=== PATIENT | female | born 1975 | race Caucasian/White ===

== ENCOUNTER → 2022-09-20 10:40 | Outpatient (CLI) | payer OTHER, SELFPAY ==
--- NOTE | 2022-09-20 10:43 | DI.RAD.S_ITS ---
PROCEDURE: XR ANKLE RT MIN 3V INDICATIONS: lateral malleolar tenderness, snap while running TECHNIQUE: 3 views of the ankle were acquired. COMPARISON: None. FINDINGS: Bones: No fractures or dislocations. Ankle mortise is normally aligned. No suspicious bony lesions. Soft tissues: Moderate-sized tibiotalar joint effusion. Achilles tendon appears normal. IMPRESSION: 1. No visible fractures. 2. Moderate-sized tibiotalar joint effusion may indicate sprain. Dictated by: Delia Anthony M.D. on 09/20/2022 at 10:45 Approved by: Delia Anthony M.D. on 09/20/2022 at 10:46
--- NOTE | 2022-09-20 10:43 | DI.RAD.S_ITS ---
PROCEDURE: XR FOOT RT MIN 3V INDICATIONS: lateral malleolar tenderness, snap while running TECHNIQUE: 3 views of the foot were acquired. COMPARISON: None. FINDINGS: Bones: No fractures or dislocations. No suspicious bony lesions. Soft tissues: Moderate-sized tibiotalar joint effusion. Achilles tendon appears normal. IMPRESSION: 1. No visible fractures. 2. Moderate-sized tibiotalar joint effusion. Dictated by: Delia Anthony M.D. on 09/20/2022 at 10:46 Approved by: Delia Anthony M.D. on 09/20/2022 at 10:47
== END ==
PROVIDERS: PCP Family Medicine; Referring Provider Student in an Organized Health Care Education/Training Program; Visit Provider Student in an Organized Health Care Education/Training Program
DX: M25.471 Effusion, right ankle (principal)
CPT/HCPCS: 73610; 73630

== ENCOUNTER → 2024-04-26 07:52 | Outpatient (CLI) | payer OTHER, MEDICAID, SELFPAY ==
--- NOTE | 2024-04-26 07:54 | DI.US.S_ITS ---
PROCEDURE: US ABDOMEN COMPLETE INDICATIONS: abd cramping, endometriosis TECHNIQUE: Real-time scanning was performed of the abdominal and retroperitoneal organs, with image documentation. COMPARISON: None. FINDINGS: Liver: Liver is normal in size and homogeneous in echotexture. Gallbladder: There is no gallstone. No gallbladder wall thickening or pericholecystic fluid. No sonographic Taylor's sign. Biliary ducts: Intrahepatic bile ducts are non-dilated. Extrahepatic bile duct caliber measures 3.1 mm. Normal is 6-7 mm or less in diameter, or 10 mm or less post-cholecystectomy. Pancreas: Visualized portions of the pancreas are sonographically normal. Spleen: Spleen is normal in size and homogeneous in echotexture. Kidneys: Kidneys are normal in size and echotexture. Right kidney measures 11.4 cm long; left kidney measures 9.8 cm long. No hydronephrosis or nephrolithiasis. No solid masses. Aorta: Visualized aorta is normal in caliber at less than 3 cm. Iliacs: Proximal common iliac arteries are normal in caliber at less than 2.5 cm. IVC: Intrahepatic inferior vena cava is patent. Miscellaneous: No free abdominal fluid. IMPRESSION: Unremarkable ultrasound examination of abdomen. Dictated by: Skinny Watts M.D. on 04/26/2024 at 8:52 Approved by: Skinny Watts M.D. on 04/26/2024 at 8:52
--- NOTE | 2024-04-26 07:54 | DI.US.S_ITS ---
PROCEDURE: US PELVIC COMPLETE INDICATIONS: abd cramping, pelvic pain, endometriosis TECHNIQUE: Real-time scanning was performed of the pelvic organs, with image documentation. Additional endovaginal scanning was necessary due to incomplete visualization of the adnexal and endometrial structures by transabdominal scanning. COMPARISON: None. FINDINGS: Uterus: Uterus is anteverted and normal in size at 9.7 x 5.0 x 6.9 cm. The myometrium is homogeneous. The endometrium measures 2.7 mm combined thickness. Intrauterine device is noted in its normal central endometrial location. No endometrial mass. Trace amount of fluid is seen in endocervical canal. Ovaries: The right ovary measures 2.3 x 4.6 x 1.7 cm, with a calculated ovarian volume of 9.4 cc. The left ovary measures 3.8 x 2.5 x 2.6 cm, with a calculated ovarian volume of 12.9 cc. 2 simple appearing cysts are noted in right ovary measures up to 2.1 x 1.3 x 1.9 cm in size. 2.4 x 2.8 x 1.8 cm hemorrhagic cyst is seen in left ovary. No solid appearing ovarian lesion. Less than 12 follicles can be seen in each ovary. No adnexal masses are seen. Other: No pathologic free abdominal or pelvic fluid. IMPRESSION: 1. No endometrial mass or fluid. Trace amount of fluid within endocervical canal. No discrete uterine fibroids. 2. Simple cysts in right ovary as above. Possible hemorrhagic cyst in left ovary measures 2.4 x 2.8 x 1.8 cm in size. Short term sonographic 4-6 weeks follow-up is recommended. We strive to produce accurate, complete, and clear reports of imaging services. To assist us in improving patient care, this report was composed using standard report templates and voice recognition software. Therefore, it may contain abnormal punctuation, insertions and/or omissions. Occasional wrong-word or sound-alike substitutions may occur. Though we review the report and make efforts to correct it, we do recommend that the report be read carefully in proper context to recognize any text inaccuracies. Dictated by: Skinny Watts M.D. on 04/26/2024 at 8:52 Approved by: Skinny Watts M.D. on 04/26/2024 at 8:55
== END ==
PROVIDERS: PCP Family Medicine; Referring Provider Family Medicine; Visit Provider Family Medicine
DX: N80.9 Endometriosis, unspecified (principal); N83.291 Other ovarian cyst, right side; N83.202 Unspecified ovarian cyst, left side; R10.2 Pelvic and perineal pain; R10.9 Unspecified abdominal pain; F39 Unspecified mood [affective] disorder; G62.9 Polyneuropathy, unspecified; R45.86 Emotional lability; R63.4 Abnormal weight loss; Z97.5 Presence of (intrauterine) contraceptive device
CPT/HCPCS: 36415; 76700; 76830; 76856; 80053; 82397; 82533; 82670; 83001; 83498; 84403; 84425; 84439; 84443; 84480; 84482; 85025

== ENCOUNTER → 2024-04-26 08:39 | Outpatient (CLI) | payer OTHER, MEDICAID, SELFPAY ==
[2024-04-26 09:17] LABS: Add Manual Diff / Slide Review NO; Basophils Absolute Auto 0 /uL (0-100); Basophils Percent Auto 0.8 % (0-2); Eosinophils Absolute Auto 0 /uL (0-450); Hematocrit 38.7 % (36-46); Hemoglobin 13.3 g/dL (12.0-16.0); Lymphocytes Absolute Auto 1400 /uL (1100-4500); Lymphocytes Percent Auto 28.5 % (25-40); Mean Corpuscular HGB Conc 34.4 % (30-36); Mean Corpuscular Hemoglobin 30.8 PG (26-34); Mean Corpuscular Volume 89.7 fL (80-100); Monocytes Absolute Auto 300 /uL (0-900); Monocytes Percent Auto 5.6 % (3-14); Neutrophils Absolute Auto 3000 /uL (1500-7000); Neutrophils Percent Auto 64.1 % (50-75); Platelet Count 247 X10^3/uL (150-400); Red Blood Cell Count 4.31 X10^6/uL (4.0-5.2); Red Cell Distribution Width 12.9 % (11.6-14.8); White Blood Cell Count 4.7 X10^3/uL (4.5-11.0)
[2024-04-26 09:47] LABS: Alanine Aminotransferase 23 IU/L (<35); Albumin 4.2 g/dL (3.5-5.0); Albumin Globulin Ratio 1.9 (1.0-2.8); Alkaline Phosphatase 55 U/L (38-126); Aspartate Aminotransferase 31 IU/L (14-36); BUN Creatinine Ratio 15.9 (6-22); Bilirubin Total 0.6 mg/dL (0.2-1.3); Blood Urea Nitrogen 13 mg/dL (7-17); Calcium 9.1 mg/dL (8.4-10.2); Carbon Dioxide 26 mmol/L (22-32); Chloride 105 mmol/L (98-107); Estimated Glomerular Filt Rate > 60 mL/min (>60); Globulin 2.2 g/dL (1.7-4.1); Glucose 85 mg/dL (70-100); HEMOLYSIS < 15 (0-50); Potassium 3.9 mmol/L (3.4-5.1); Sodium 136 mmol/L (137-145); Total Protein 6.4 g/dL (6.3-8.2)
[2024-04-26 10:02] LABS: Follicle Stimulating Hormone 8.82 mIU/mL; Free T4, Direct Thyroxine 0.79 ng/dL (0.78-2.19)
[2024-04-26 10:16] LABS: Thyroid Stimulating Hormone 3.98 uIU/mL (0.47-4.68)
[2024-04-26 10:17] LABS: Cortisol Random 9.92 ug/dL
[2024-04-26 10:18] LABS: Estradiol, Total 140.7 pg/mL
[2024-04-26 10:19] LABS: Testosterone 36.5 ng/dL (5.71-77.0)
[2024-04-27 07:36] LABS: Triiodothyronine T3 Total 96 ng/dL (71-180)
[2024-05-01 08:36] LABS: Vitamin B1 126.5 nmol/L (66.5-200.0)
[2024-05-01 20:09] LABS: Anti Mullerian Hormone 0.055 ng/mL (.)
[2024-05-01 23:07] LABS: Triiodothyronine T3 Reverse 12.3 ng/dL (.)
== END ==
PROVIDERS: PCP Family Medicine; Referring Provider Family Medicine; Visit Provider Family Medicine
DX: R10.9 Unspecified abdominal pain (principal); N80.9 Endometriosis, unspecified; G62.9 Polyneuropathy, unspecified; R45.86 Emotional lability; R10.2 Pelvic and perineal pain; R63.4 Abnormal weight loss; F39 Unspecified mood [affective] disorder
CPT/HCPCS: 36415; 80053; 82397; 82533; 82670; 83001; 83498; 84403; 84425; 84439; 84443; 84480; 84482; 85025

== ENCOUNTER 2024-10-17 09:18 | Day surgery (SDC) | payer OTHER, SELFPAY ==
--- NOTE | 2024-10-17 | PATH_ITS ---
[facility] Accession Number: [id number] No. of containers..01 Tissue . 01 Material submitted: . rectum - RECTAL POLYP . 01 Diagnosis: RECTAL POLYP: Colonic mucosa with focal mucosal hyperplasia. Negative for dysplasia or malignancy. MRV 10/24/2024 1311 Local . 01 Electronically signed: . Alvaro Reese MD, PhD, Pathologist NPI- [id number] . 01 Gross description: . Received in formalin with two identifiers and rectal polyp, are two butler soft tissue fragments 0.3 cm each in greatest dimension. Submitted in cassette A1. ([id number]) /ARUN 10/21/2024 0549 Local . 01 Pathologist provided ICD-10: K62.1 . 01 CPT . 789774 Specimen Comment: A courtesy copy of this report has been sent to [phone] Performed at: [address] [facility] [address], [place], [place] [id number] MD Darwin Belcher MD Phone: [phone]
[2024-10-17 11:14] VITALS: BP 102/60; PULSE 67; RESP 16; TEMP 36.7; O2SAT 100
[2024-10-17] MEDS: LACTATED RINGERS 1,000 ML 42 ML IV (11:26)
--- NOTE | 2024-10-17 11:31 | P.HP_ITS ---
History of Present Illness History of Present Illness Date Patient Seen: 10/17/24 Chief complaint: Colonoscopy Narrative: First complete colonoscopy for screening [facility] Medical History (Updated 08/02/24 @ 17:44 by Aneta Yepez MD) Family history of breast cancer H/O failed conscious sedation Encounter for IUD removal Wears glasses Anxiety Peripheral neuropathy (~2022) ADHD (~1989) Carpal tunnel syndrome (~2019) Chicken pox (~1981) Tinnitus (~2013) Hypothyroidism (~2007) Endometriosis (~2005) Weight loss Surgical History (Updated 07/03/24 @ 19:04 by Aneta Yepez MD) S/P bilateral mastectomy Social History Smoking Status: Never smoker alcohol intake: never additional social history: lives with and 4 children: .03.08.16 safe physical work: [employer] depression and anxiety in the past: in [place] -- daughter had psych problem -- SSRI started sertraline -- no libido. now on wellbutrin dad with anxiety. FHX: mom -- breast cancer - 39 yo. sister: anxiety and ADHD mastectomy: bilateral. genetic testing is negative PMHX: endometriosis stomach problems 10 yrs ago -- tinnitus due to abx from bacteremia. cannot eat sugar. Mirena IUD since 2018 + family history of bipolar in extended family denies history of abuse 03/2024 Meds Home Medications and Allergies Home Medications ?Medication ?Instructions ?Recorded ?Confirmed ?Type progesterone micronized 100 mg 100 mg PO BEDTIME take every day 04/10/24 08/02/24 Rx capsule while on estrogen #90 caps bupropion HCl 300 mg 24 hr tablet, 300 mg PO QAM #90 t abs 08/02/24 10/17/24 Rx extended release estradiol 0.0375 mg/24 hr 1 patch transdermal 2XW must take 09/26/24 Rx semiweekly transdermal patch progesterone every night. #24 ea Allergies Allergy/AdvReac Type Severity Reaction Status Date / Time No Known Drug Allergies Allergy Verified 10/17/24 11:11 Exam Vital Signs (past 8 hours): - 10/17/24 11:14 Temperature 98.1 F Pulse Rate 67 Respiratory Rate 16 Blood Pressure 102/60 Pulse Oximetry 100 Oxygen Delivery Method Room Air Oxygen Delivery Method Room Air Narrative Exam Narrative: Oropharynx free of lesions Chest clear to auscultation percussion Assessment & Plan Assessment & Plan narrative: 1st complete colonoscopy for screening. Risks, benefits, alternatives have been explained. Time-Based Coding :: [TOTAL MINUTES] spent with patient and on the chart (including review of chart, obtaining history, exam, reviewing outside data, placing orders, documenting exam and treatment plan, and counseling patient) on [DATE]. PROFEE Direct Marketing Specialist Document charge(s): No
--- NOTE | 2024-10-17 11:34 | PM.OP.COLON ---
Operative Date/Time/Diagnoses Date of procedure: 10/17/24 Time of procedure: 12:30 Pre-op diagnosis: See indication and findings Post-op diagnosis: same Procedure & Clinicians Study performed: Colonoscopy Same procedure(s) as scheduled: Yes Indications: Screening Surgeon: Naila Barton Procedure Notes Procedure in detail: After informed consent was obtained the patient was placed in left lateral decubitus position. The video colonoscope was placed in the rectum slowly advanced cecum. Preparation was good. On slow withdrawal mucosa was carefully examined. The scope was removed. The patient tolerated procedure well. Blood loss none Complications none Sedation mac Findings 1. Scattered sigmoid diverticulosis 2. 4 mm polyp in the high rectum Jumbo biopsied and removed completely 3. Otherwise negative colonoscopy to cecum Will be in touch regarding biopsies which will help determine whether she has follow-up in 5-7 years or in 10 years.
[2024-10-17 12:32] VITALS: BP 96/50; PULSE 73; RESP 14; TEMP 36.6; O2SAT 100
[2024-10-17 12:37] VITALS: BP 102/66; PULSE 73; RESP 16; O2SAT 100
[2024-10-17 12:42] VITALS: BP 103/64; PULSE 73; RESP 18; O2SAT 100
[2024-10-17 12:47] VITALS: BP 94/63; PULSE 71; RESP 16; O2SAT 98
[2024-10-17] MEDS: SIMETHICONE 80 MG TABLET PO (13:16)
--- NOTE | 2024-10-17 14:29 | SUR.PHASEII ---
Patient reported abdominal pain had decreased from 7/10 to 5/10. She reported passing flatus. Abdomen soft, flat. Patient requested to discharge.
== END 2024-10-17 13:43 | disposition home or self-care (01) ==
PROVIDERS: PCP Family Medicine; Referring Provider Internal Medicine Gastroenterology; Visit Provider Internal Medicine Gastroenterology
PROC: 0DJD8ZZ Inspection of Lower Intestinal Tract, Via Natural or Artificial Opening Endoscopic (ICD-10-PCS; CPT 45378; principal; 2024-10-17 09:30)
DX: Z12.11 Encounter for screening for malignant neoplasm of colon (principal); K62.1 Rectal polyp; K57.30 Diverticulosis of large intestine without perforation or abscess without bleeding
CPT/HCPCS: 45380; J2704